=== PATIENT | male | born 1950 | race Caucasian/White ===

== ENCOUNTER 2024-08-28 08:33 | Outpatient (CLI) | payer MEDICARE | END 2024-08-28 08:34 | disposition home or self-care (01) | LOC: CSHSLEEP 08:33 | PROVIDERS: ATTEND Internal Medicine Critical Care Medicine | DX: G47.33 Obstructive sleep apnea (adult) (pediatric) (principal); E11.9 Type 2 diabetes mellitus without complications; I10 Essential (primary) hypertension; R06.83 Snoring | CPT/HCPCS: 95810 ==